=== PATIENT | female | born 1990 | race Caucasian/White ===

== ENCOUNTER 2017-08-25 18:27 | Emergency (ER) | payer OTHER ==
[2017-08-25 18:51] VITALS: BP 115/81
--- NOTE | 2017-08-25 19:30 | UC ---
Abdominal Pain Female HPI - HPI Summary HPI Summary: 27 yo female with vague lower abd pain and left lower back pain x hours Can't get comfortable no f/c mild headache no UTI symptoms no contraction no cough of SOB She is 22 weeks She called her OB and states that they told her to have her FHTs checked and that there was nothing they could do there She had a OB visit yesterday She had a u/s yesterday states everything was fine - History of Current Complaint Chief Complaint: UCGeneralIllness Stated Complaint: 22 WKS /FLU SYMPTOMS/UNCOMFORTABLE Time Seen by Provider: 08/25/17 18:50 Hx Obtained From: Patient Hx Last Menstrual Period: "I don't even remember. I'm getting close to due, so" ?: Yes Onset/Duration: Gradual Onset Timing: Constant Severity Initially: Mild Severity Currently: Mild Pain Intensity: 3 - "not really pain/can't get comfortable Pain Scale Used: 0-10 Numeric Location: Discrete At: LUQ Radiates: Yes Radiates to: Back Character: Unable to describe - tight?? Alleviating Factor(s): Nothing Associated Signs and Symptoms: Positive: Back Pain. Negative: Diaphoresis, Fever, Cough, Chest Pain, Dizzy, Constipation - no BM today, Blood in Stool, Urinary Symptoms, Decreased Appetite, Vaginal Bleeding, Vaginal Discharge, Nausea, Vomiting, Diarrhea Allergies/Adverse Reactions: Allergies Allergy/AdvReac Type Severity Reaction Status Date / Time Sulfa Drugs Allergy Severe anaphylaxis Verified 08/25/17 18:42 Pseudoephedrine Allergy Mild Hives Verified 08/25/17 18:42 [From [facility]] Home Medications: Home Medications Folic Acid TAB* [Folvite TAB*] 1 tab DAILY 08/25/17 [History Confirmed 08/25/17] PMH/Surg Hx/FS Hx/Imm Hx Previously Healthy: Yes - Surgical History Surgical History: None - Family History Known Family History: Positive: Cardiac Disease, Hypertension, Diabetes - Social History Alcohol Use: None Substance Use Type: None Smoking Status (MU): Never Smoked Tobacco Have You Smoked in the Last Year: No - Immunization History Most Recent Influenza Vaccination: not yet 2017 Review of Systems Constitutional: Negative Gastrointestinal: Abdominal Pain Neurological: Headache Is Patient Immunocompromised?: No All Other Systems Reviewed And Are Negative: Yes Physical Exam Triage Information Reviewed: Yes Appearance: Well-Appearing, No Pain Distress, Well-Nourished Vital Signs: Initial Vital Signs Temp 97.4 F 08/25/17 18:43 Pulse 93 08/25/17 18:43 Resp 18 08/25/17 18:43 BP 115/81 08/25/17 18:43 Pulse Ox 99 08/25/17 18:43 Vital Signs Reviewed: Yes Eyes: Positive: Conjunctiva Clear ENT: Positive: Hearing grossly normal, Pharynx normal, TMs normal, Tonsillar exudate, Trismus, Muffled/hoarse voice, Other: - no sinus tenderness. Negative : Nasal congestion, Nasal drainage Neck: Positive: Supple, Nontender, No Lymphadenopathy Respiratory: Positive: Lungs clear, Normal breath sounds, No respiratory distress, No accessory muscle use Cardiovascular: Positive: RRR, No Murmur Abdomen Description: Positive: Nontender, Soft, Other: - gravid uterus/normal FHTs/slight LLQ tenderness. Negative: CVA Tenderness (R), CVA Tenderness (L) Bowel Sounds: Positive: Present Musculoskeletal: Positive: ROM Intact, No Edema Neurological: Positive: Alert Psychological Exam: Normal Skin Exam: Normal Skin: Negative: rashes Abd Pain Female Course/Dx - Course Course Of Treatment: I advised patient that we are not able to adequately evaluated her. To the extent that we can evaluate her everything was normal. I suggested she go were she could ge evaluated by u/s. I also felt she may need monitoring. She desires to try tylenol and will seek follow up if this does not help. - Differential Dx/Diagnosis Provider Diagnoses: back and lower abdominal pain (mild) of uncertain cause Discharge - Discharge Plan Condition: Stable Disposition: HOME Referrals: Non Staff,Doctor [Primary Care Provider] - Additional Instructions: Your blood pressure was fine 115/81 Your urine dip was normal heart tones were normal I am unsure of the cause of your symptoms If your symptoms are not relieved with tylenol I suggest you call your OB and go were you can get a more in depth workup You may need and ultrasound and/or monitoring
== END 2017-08-25 19:32 | disposition home or self-care (01) ==
LOC: UCCORT 18:27
DX: R10.30 Lower abdominal pain, unspecified (principal); M54.5 Low back pain; Z33.1 Pregnant state, incidental; Z88.2 Allergy status to sulfonamides; Z88.8 Allergy status to other drugs, medicaments and biological substances
CPT/HCPCS: 81003; 87086; 99212; G0463

== ENCOUNTER 2017-12-18 15:33 | Emergency (ER) | payer OTHER ==
[2017-12-18 15:47] VITALS: BP 104/86
--- NOTE | 2017-12-18 16:09 | UC ---
Abdominal Pain Female HPI - HPI Summary HPI Summary: pt is c/o central upper abdominal pain for the past 3 days. it was episodic until today, it became constant and severe post eating. she has had nausea with dry heaves plus soft but not lose bms'. pt took tums with NO relief - History of Current Complaint Chief Complaint: UCAbdominalPain Stated Complaint: STOMACH PAIN Time Seen by Provider: 12/18/17 15:51 Hx Obtained From: Patient Hx Last Menstrual Period: 12/10-12/14/17 ?: No Severity Initially: Mild Severity Currently: Severe Pain Intensity: 9 Location: Epigastric Radiates: No Character: Sharp Aggravating Factor(s): Food Alleviating Factor(s): Nothing Associated Signs and Symptoms: Positive: Nausea, Vomiting. Negative: Blood in Stool, Diarrhea Allergies/Adverse Reactions: Allergies Allergy/AdvReac Type Severity Reaction Status Date / Time MS Sulfa Drugs [Sulfa Drugs] Allergy Severe anaphylaxis Verified 12/18/17 15:47 Penicillins Allergy Severe ANAPHLAXYX Verified 12/18/17 15:47 MS Pseudoephedrine Allergy Mild Hives Verified 12/18/17 15:47 [From [facility]] Home Medications: Home Medications Sertraline* [Zoloft*] 12/18/17 [History] metFORMIN* [Glucophage 500 MG TAB *] 12/18/17 [History] PMH/Surg Hx/FS Hx/Imm Hx Previously Healthy: No - DMII, acute depression due to still born [birth year], per triage - Surgical History Surgical History: None - Family History Known Family History: Positive: Cardiac Disease, Hypertension, Diabetes - Social History Alcohol Use: None Substance Use Type: None Smoking Status (MU): Never Smoked Tobacco Have You Smoked in the Last Year: No - Immunization History Most Recent Influenza Vaccination: not yet 2017 Review of Systems Constitutional: Negative Skin: Negative Eyes: Negative ENT: Negative Respiratory: Negative Cardiovascular: Negative Gastrointestinal: Abdominal Pain, Vomiting, Nausea Genitourinary: Negative Is Patient Immunocompromised?: Yes All Other Systems Reviewed And Are Negative: Yes Physical Exam Triage Information Reviewed: Yes Appearance: Pain Distress Vital Signs: Initial Vital Signs Temp 98.4 F 12/18/17 15:43 Pulse 94 12/18/17 15:43 Resp 20 12/18/17 15:43 BP 104/86 12/18/17 15:43 Pulse Ox 100 12/18/17 15:43 Vital Signs Reviewed: Yes Eyes: Positive: Conjunctiva Clear ENT Exam: Normal Neck: Positive: Supple, Nontender, No Lymphadenopathy Respiratory: Positive: Lungs clear, Normal breath sounds, No respiratory distress Cardiovascular: Positive: RRR, No Murmur Abdomen Description: Positive: No Organomegaly, Soft, Other: - diffusely tender across upper abdomen Bowel Sounds: Positive: Hyperactive Musculoskeletal: Positive: No Edema Neurological Exam: Normal Skin Exam: Normal Abd Pain Female Course/Dx - Course Course Of Treatment: PT PRESENTS WITH ABDOMINAL PAIN. SHE REQUIRES AN ER EVALUATION. SHE IS UNABLE TO PROVIDE A URINE PRIOR TO TRANSFER. SHE IS REFUSING EMS CITING WILL CALL MOTHER IN [place] TO DRIVE HER OR DRIVE HERSELF. report given to malissa cerna/lacquer dipping machine operator at [facility]. advised of upper abdominal pain-acute and refusing ems thus coming via private care. - Differential Dx/Diagnosis Differential Diagnosis: Ectopic , Gall Bladder Disease, Hepatitis, Pancreatitis Provider Diagnoses: ACUTE UPPER ABDOMINAL PAIN Discharge - Discharge Plan Condition: Stable Disposition: TRANS HIGHER LVL OF CARE FAC Referrals: Komal Mena MD [Primary Care Provider] -
== END 2017-12-18 16:19 | disposition short-term general hospital (02) ==
LOC: UCCORT 15:33
DX: R10.10 Upper abdominal pain, unspecified (principal); E11.9 Type 2 diabetes mellitus without complications; Z79.84 Long term (current) use of oral hypoglycemic drugs; F32.9 Major depressive disorder, single episode, unspecified
CPT/HCPCS: 99212; G0463

== ENCOUNTER 2018-04-24 17:01 | Emergency (ER) | payer BC ==
--- NOTE | 2018-04-24 17:50 | UC ---
Complaint Female HPI - HPI Summary HPI Summary: Pt c/o sudden onset of vaginal itchy and discharge. Pt is ~ 5-6 weeks. - History Of Current Complaint Chief Complaint: UCGU Stated Complaint: POSSIBLE YEAST INFECTION Time Seen by Provider: 04/24/18 17:24 Hx Obtained From: Patient Hx Last Menstrual Period: 03/08/18 ?: Yes Onset/Duration: Sudden Onset, Lasting Hours, Still Present Timing: Constant Severity Initially: Mild Severity Currently: Mild Pain Intensity: 0 Character: Burning Alleviating Factor(s): Nothing Associated Signs And Symptoms: Positive: Vaginal Discharge - Risk Factors Ectopic Risk Factor: Negative Ovarian Torsion Risk Factor: Reproductive Age - Allergies/Home Medications Allergies/Adverse Reactions: Allergies Allergy/AdvReac Type Severity Reaction Status Date / Time MS Sulfa Drugs [Sulfa Drugs] Allergy Severe anaphylaxis Verified 12/18/17 15:47 Penicillins Allergy Severe ANAPHLAXYX Verified 12/18/17 15:47 MS Pseudoephedrine Allergy Mild Hives Verified 12/18/17 15:47 [From [facility]] Home Medications: Home Medications Folic Acid TAB* [Folvite TAB*] 1 mg PO DAILY 04/24/18 [History Confirmed ] PMH/Surg Hx/FS Hx/Imm Hx Previously Healthy: Yes - Surgical History Surgical History: None - Family History Known Family History: Positive: Cardiac Disease, Hypertension, Diabetes - Social History Alcohol Use: None Substance Use Type: None Smoking Status (MU): Never Smoked Tobacco Have You Smoked in the Last Year: No - Immunization History Most Recent Influenza Vaccination: not yet 2016 Review of Systems Constitutional: Negative Skin: Negative Eyes: Negative ENT: Negative Respiratory: Negative Cardiovascular: Negative Gastrointestinal: Negative Genitourinary: Vaginal/Penile Burning, Vaginal/Penile Itching, Vaginal/Penile Discharge Motor: Negative Neurovascular: Negative Musculoskeletal: Negative Neurological: Negative Psychological: Negative Is Patient Immunocompromised?: No All Other Systems Reviewed And Are Negative: Yes Physical Exam Triage Information Reviewed: Yes Appearance: Well-Appearing Vital Signs: Initial Vital Signs Temp 98.7 F 04/24/18 17:25 Pulse 95 04/24/18 17:25 Resp 17 04/24/18 17:25 BP 141/63 04/24/18 17:25 Pulse Ox 98 04/24/18 17:25 Vital Signs Reviewed: Yes Eye Exam: Normal ENT Exam: Normal Dental Exam: Normal Neck exam: Normal Neck: Positive: Supple Respiratory: Positive: No respiratory distress Musculoskeletal Exam: Normal Neurological Exam: Normal Psychological Exam: Normal Skin Exam: Normal Complaint Female Dx - Differential Dx/Diagnosis Differential Diagnosis/HQI/PQRI: Sexually Transmitted Disease, Urinary Tract Infection Provider Diagnoses: vaginitis Discharge - Sign-Out/Discharge Documenting (check all that apply): Discharge/Admit/Transfer - Discharge Plan Condition: Stable Disposition: HOME Prescriptions: Clotrimazole 1% VAGINAL CREAM* [Gyne-Lotrimin 1% VAGINAL CREAM*] 1 applic VAGINAL BEDTIME #7 tube metroNIDAZOLE [Flagyl 500 MG TAB] 500 mg PO Q12H #14 tab Patient Education Materials: Vaginitis (ED) Referrals: Komal Mena MD [Primary Care Provider] - - Billing Disposition and Condition Condition: STABLE Disposition: Home
[2018-04-24 18:16] VITALS: BP 129/52
== END 2018-04-24 18:16 | disposition home or self-care (01) ==
LOC: UCCORT 17:01
DX: O23.591 Infection of other part of genital tract in pregnancy, first trimester (principal); N76.0 Acute vaginitis; B96.89 Other specified bacterial agents as the cause of diseases classified elsewhere; Z3A.01 Less than 8 weeks gestation of pregnancy; Z88.0 Allergy status to penicillin; Z88.8 Allergy status to other drugs, medicaments and biological substances
CPT/HCPCS: 87480; 87491; 87510; 87591; 87660; 99212; G0463

== ENCOUNTER 2018-09-19 07:52 | Emergency (ER) | payer SELFPAY ==
[2018-09-19 08:32] VITALS: BP 107/49
--- NOTE | 2018-09-19 08:46 | UC ---
UC General HPI - HPI Summary HPI Summary: COUGH, CHEST CONGESTION AND LARYNGITIS FOR A FEW DAYS. NO FEVER OR ASTHMA. 28 WEEKS . ADMITS TO SOME WHEEZING AND SOB WITH COUGH. NO VAGINAL D/C AND BABY MOVEMENT PER NORMAL FOR HER. - History of Current Complaint Chief Complaint: UCRespiratory Stated Complaint: CHEST CONGESTION Time Seen by Provider: 09/19/18 08:36 Hx Obtained From: Patient Hx Last Menstrual Period: 03/08/18 Onset/Duration: Gradual Onset Pain Intensity: 4 Associated Signs & Symptoms: Positive: Cough, SOB, Wheezing. Negative: Chest Pain, Fever - Allergy/Home Medications Allergies/Adverse Reactions: Allergies Allergy/AdvReac Type Severity Reaction Status Date / Time Penicillins Allergy Severe ANAPHLAXYX Verified 09/19/18 08:37 pseudoephedrine Allergy Hives Verified 09/19/18 08:37 [From Sudafed] Sulfa (Sulfonamide Allergy Anaphylatic Verified 09/19/18 08:37 Antibiotics) Shock PMH/Surg Hx/FS Hx/Imm Hx - Additional Past Medical History Additional PMH: 28 WEEKS - Surgical History Surgical History: None - Family History Known Family History: Positive: Cardiac Disease, Hypertension, Diabetes - Social History Lives: With Family Alcohol Use: None Substance Use Type: None Smoking Status (MU): Never Smoked Tobacco Have You Smoked in the Last Year: No - Immunization History Most Recent Influenza Vaccination: not yet 2017 Vaccination Up to Date: Yes Review of Systems All Other Systems Reviewed And Are Negative: Yes Constitutional: Positive: Negative Skin: Positive: Negative Eyes: Positive: Negative ENT: Positive: Negative Respiratory: Positive: Shortness Of Breath, Cough Cardiovascular: Positive: Negative Gastrointestinal: Positive: Negative Genitourinary: Positive: Negative Motor: Positive: Negative Neurovascular: Positive: Negative Musculoskeletal: Positive: Negative Neurological: Positive: Negative Psychological: Positive: Negative Is Patient Immunocompromised?: No Physical Exam Triage Information Reviewed: Yes Appearance: Well-Appearing Vital Signs: Initial Vital Signs Temp 97.7 F 09/19/18 08:25 Pulse 108 09/19/18 08:25 Resp 18 09/19/18 08:25 BP 107/49 09/19/18 08:25 Pulse Ox 99 09/19/18 08:25 Vital Signs Reviewed: Yes Eyes: Positive: Conjunctiva Clear ENT: Positive: Pharynx normal, TMs normal, Hoarse voice, Uvula midline. Negative: Nasal congestion, Nasal drainage Neck: Positive: Supple, Nontender, No Lymphadenopathy, Other: - NO STRIDOR Respiratory: Positive: Lungs clear, No respiratory distress, Decreased breath sounds, Other: - NPC Cardiovascular: Positive: RRR, No Murmur Abdomen Description: Positive: Nontender, Soft, Other: - GRAVID UTERUS. Negative: Distended, Guarding, Hepatomegaly, Splenomegaly Musculoskeletal: Positive: ROM Intact Neurological: Positive: Alert Psychological: Positive: Age Appropriate Behavior Skin Exam: Normal Re-Evaluation - Re-Evaluation First Eval Re-Evaluation Time: 09:34 Change: Improved - BETTER AERATION. PT NOTES EASIER TO BREATHE. Course/Dx - Course Course Of Treatment: NO CONCERN FOR PNEUMONIA OR BACTERIAL INFECTION. - Differential Dx - Multi-Symptom Provider Diagnoses: LARYNGITIS. BRONCHITIS Discharge - Sign-Out/Discharge Documenting (check all that apply): Patient Departure All imaging exams completed and their final reports reviewed: No Studies - Discharge Plan Condition: Stable Disposition: HOME Patient Education Materials: Laryngitis (ED), Acute Bronchitis (ED) Referrals: Komal Mena MD [Primary Care Provider] - Zach Nicholson MD [Medical Doctor] - Additional Instructions: FOLLOW UP WITH DR NICHOLSON OR DR MENA IN 5 DAYS FOR A RECHECK. GO TO THE ER FOR ANY WORSENING. - Billing Disposition and Condition Condition: STABLE Disposition: Home
[2018-09-19] MEDS ORDERED: Albuterol 2.5 MG/3 ML NEB.SOL* (0.083%) INH ONE (08:49)
[2018-09-19] MEDS ORDERED: Albuterol HFA INHALER* 8 gm MDI INH ONE (09:41)
== END 2018-09-19 09:50 | disposition home or self-care (01) ==
LOC: UCCORT 07:52
DX: O26.893 Other specified pregnancy related conditions, third trimester (principal); J40 Bronchitis, not specified as acute or chronic; J04.0 Acute laryngitis; Z3A.28 28 weeks gestation of pregnancy; Z88.0 Allergy status to penicillin; Z88.2 Allergy status to sulfonamides; Z88.8 Allergy status to other drugs, medicaments and biological substances
CPT/HCPCS: 99213; A9270-GY; G0463